=== PATIENT | male | born 1960 | race Two or more races ===

== ENCOUNTER 2021-03-18 17:12 | Emergency (ER) | payer MEDICARE, MEDICAID, SELFPAY ==
--- NOTE | ~2021-03-18 | XR_ITS ---
EXAMINATION: LEFT FOOT AND LEFT ANKLE CLINICAL INFORMATION: Pain. COMPARISON: None TECHNIQUE: 3 views left foot and 2 views left ankle. FINDINGS: LEFT FOOT: The ankle mortise and subtalar joints are normal. There is no visible acute fracture or dislocation seen. The soft tissues are normal. LEFT ANKLE: There is an lucency traversing distal lateral malleolus with mild lateral malleolar soft tissue swelling. The ankle mortise and subtalar joints are normal. There is no visible acute fracture, dislocation or subluxation seen. XR/XR foot LT 2V IMPRESSION: Nondisplaced fracture tip of lateral malleolus with moderate lateral malleolar soft tissue swelling. No additional fractures involving the left ankle or the left foot.
--- NOTE | ~2021-03-18 | XR_ITS ---
EXAMINATION: LEFT FOOT AND LEFT ANKLE CLINICAL INFORMATION: Pain. COMPARISON: None TECHNIQUE: 3 views left foot and 2 views left ankle. FINDINGS: LEFT FOOT: The ankle mortise and subtalar joints are normal. There is no visible acute fracture or dislocation seen. The soft tissues are normal. LEFT ANKLE: There is an lucency traversing distal lateral malleolus with mild lateral malleolar soft tissue swelling. The ankle mortise and subtalar joints are normal. There is no visible acute fracture, dislocation or subluxation seen. XR/XR ankle LT 2V IMPRESSION: Nondisplaced fracture tip of lateral malleolus with moderate lateral malleolar soft tissue swelling. No additional fractures involving the left ankle or the left foot.
[2021-03-18 17:36] VITALS: BP 152/83; PULSE 82; RESP 18; TEMP 36.4; O2SAT 97; BMI 29.5
--- NOTE | 2021-03-18 19:50 | ED_ITS ---
HPI - Fall General Chief Complaint: Fall Stated Complaint: Fall/ left foot pain Time Seen by Provider: 03/18/21 19:20 Source: patient Mode of arrival: ambulatory Limitations: no limitations History of Present Illness HPI Narrative: Patient presents to ED for left ankle pain. Patient states today he tripped and fell over his dog onto the sidewalk. Patient twisted ankle. Patient denies hitting head or loss of consciousness. Patient denies being on any blood thinners. Patient denies any chest pain, shortness of breath, vomiting blood, headache, dizziness, rectal bleeding, or abdominal pain since fall. complaint: fall Related Data Previous Rx's Medication Instructions Recorded naproxen 500 mg tablet 500 mg PO BID PRN #20 tab 03/18/21 Allergies Allergy/AdvReac Type Severity Reaction Status Date / Time No Known Allergies Allergy Unverified 02/23/20 16:59 [No Known Allergies*] Review of Systems Constitutional: Constitutional: Reports as per HPI and Reports no additional constitutional complaints Eyes: Eyes: Reports as per HPI and Reports no additional eye complaints ENT: Reports system reviewed and no additional complaints, except as documented and Reports as per HPI Cardiovascular: Cardiovascular: Reports as per HPI and Reports no additional cardiovascular complaints Respiratory: Respiratory: Reports as per HPI and Reports no additional respiratory complaints Gastrointestinal: Gastrointestinal: Reports as per HPI and Reports no additional gastrointestinal complaints Genitourinary: Genitourinary: Reports no additional male genitourinary complaints and Reports as per HPI Musculoskeletal: Musculoskeletal: Reports no additional musculoskeletal complaints, Reports as per HPI and Reports arthralgias (Left ankle pain) Neurologic: Reports system reviewed and no additional complaints, except as documented and Reports as per HPI Psychiatric: Psychiatric: Reports no additional psychiatric complaints and Reports as per HPI [facility] Past Medical History Medical History (Updated 03/18/21 @ 20:11 by PIPPA Schwartz) Depression HIV (human immunodeficiency virus infection) HTN (hypertension) Hypercholesteremia Lumbar herniated disc Social History Social History Advance Directives: No Advance Directives Information Provided: No Physical Exam Vital Signs: Vital Signs: Last Vital Signs Temp 97.5 F 03/18/21 17:36 Pulse 82 03/18/21 17:36 Resp 18 03/18/21 17:36 BP 152/83 H 03/18/21 17:36 Pulse Ox 97 03/18/21 17:36 Body Mass Index 29.5 Const: General: cooperative, healthy appearing, comfortable, no acute distress, well developed, alert, awake and Physically active Orientation/consciousness: patient oriented x3 HENMT: Head: Yes normal to inspection, Yes No palpable skull fracture present, Yes normocephalic and Yes atraumatic Eyes: General: appearance normal, both eyes and all related structures Neck: Neck: Yes normal visual inspection, Yes full ROM, Yes no lymphadenopathy, Yes no meningeal signs, Yes trachea midline, Yes supple and No tender Chest: Chest palpation & inspection: normal inspection of the chest and normal palpation of entire chest wall Resp: Effort & Inspection: normal respiratory effort and able to speak in complete sentences Auscultation: clear to auscultation bilaterally Cardio: Jugular venous distension: no JVD Heart sounds: S1 normal heart sound present and S2 normal heart sound present GI: Inspection: Yes normal to inspection and No abdominal wall ecchymosis Palpation (GI): Soft to palpation, not firm, nontender, no guarding and not rigid : General: No CVA tenderness and Yes no CVA tenderness Back/Spine/Pelvis: Back: no CVA tenderness, No CVA tenderness and No back t enderness Skin: General skin exam: no rashes or lesions noted and elasticity normal Neuro: General: patient oriented x3, gait normal, no meningeal signs and CN's II-XI intact bilaterally Cranial nerves: Yes CN's II-XII intact bilaterally Extrem: General: Yes normal to inspection and Yes full ROM Upper/lower leg/hip images: 1. Positive for left lateral malleolus tenderness, ecchymosis, and swelling on palpation. Pedal pulses intact. Neuro exam intact. Vascular exam intact. Motor Exam limited due to pain. Achilles tendon intact Psych: Appearance: grossly normal, well kempt and not disheveled Course Course Course Narrative: Patient recent ankle foot x-ray. Reevaluation(s) Reevaluation #1: Ankle x-ray shows tip of lateral malleolus fracture. Motrin or dered. Posterior splint ordered. Time: 19:56 MDM - Fall MDM Narrative Medical decision making narrative: Left lateral malleolus fracture Discharge Plan Discharge Clinical Impression: Ankle fracture, lateral malleolus, closed Patient Disposition: Home, Self-Care Instructions: Ankle Fracture (ED) Additional Instructions: You need to follow-up with orthopedic surgery. Return to ED for worsening pain, worsening bleeding black discoloration, increased swelling, calf pain, redness, chest pain, shortness of breath, pus discharge, foul odor, fever, chills, tingling, numbing, paralysis, or any other concerning symptoms. Prescriptions: New naproxen 500 mg tablet 500 mg PO BID PRN (Reason: pain) Qty: 20 RF: 0 Referrals: Zacarias Dominguez MD [Physician] - 2 days (Ankle fracture) Stand Alone Forms: Work/School Release Interventions: ED Discharge Assessment Last Done: 03/18/21 21:04 Discharge Date/Time: 03/18/21 21:07 Print Language: Ethiopian
[2021-03-18] MEDS: Ibuprofen 800 MG TABLET PO (20:08)
== END 2021-03-18 21:07 | disposition home or self-care (01) ==
PROVIDERS: Emergency Provider Internal Medicine
DX: S82.62XA Displaced fracture of lateral malleolus of left fibula, initial encounter for closed fracture (principal); I10 Essential (primary) hypertension; W01.0XXA Fall on same level from slipping, tripping and stumbling without subsequent striking against object, initial encounter; X50.1XXA Overexertion from prolonged static or awkward postures, initial encounter; Y93.01 Activity, walking, marching and hiking; Y92.480 Sidewalk as the place of occurrence of the external cause; Y99.9 Unspecified external cause status
CPT/HCPCS: 73600; 73620; 99283

== ENCOUNTER 2023-01-21 14:06 | Emergency (ER) | payer MEDICARE, MEDICAID, SELFPAY ==
[2023-01-21 14:22] VITALS: BP 147/102; PULSE 120; RESP 18; TEMP 38; O2SAT 99; BMI 36.9
--- NOTE | 2023-01-21 14:23 | ED_ITS ---
HPI - General Adult General Chief complaint: Fever Stated complaint: Fever Sore Throat Stomach Pain Time Seen by Provider: 01/21/23 15:29 Source: patient Mode of arrival: ambulatory Limitations: no limitations History of Present Illness HPI narrative: Patient is a 62 year old assigned male at with a history of HIV, HTN, and depression presenting to the emergency department today with fever, body aches, and a sore throat. Patient states that over the last day he has had a fever, body aches, and a sore throat. Patient denies any dizziness, lightheadedness, abdominal pain, nausea, vomiting, chills, blurry vision, double vision, loss of vision, chest pain, difficulty breathing, shortness of breath, back pain, night sweats, pain with urination, increased urinary frequency, increased urinary urgency, blood in his urine or stool, syncope or a near syncopal episode, recent trauma or falls, bowel incontinence, bladder incontinence, bowel retention, bladder retention, or any other complaints at this time. Onset (ago): day(s) (1) Severity: mild Severity scale (1-10): 3 Relieving factors: none Exacerbating factors: none Associated symptoms: fever/chills Treatments prior to arrival: none Related Data Previous Rx's Medication Instructions Recorded naproxen 500 mg tablet 500 mg PO BID PRN pain #20 tabs 03/18/21 Allergies Allergy/AdvReac Type Severity Reaction Status Date / Time No Known Allergies Allergy Unverified 02/23/20 16:59 [No Known Allergies*] Review of Systems Constitutional: Constitutional: Reports no additional constitutional complaints, Denies chills, Reports fever(s) and Denies night sweats Eyes: Eyes: Reports no additional eye complaints, Denies blurry vision, Denies change in vision, Denies diplopia, Denies eye discharge, Denies loss of vision and Denies eye pain ENT: Denies dizziness and Reports sore throat Cardiovascular: Cardiovascular: Reports no additional cardiovascular complaints, Denies chest pain, Denies lightheadedness, Denies Loss of Consciousness and Denies dyspnea Respiratory: Respiratory: Reports no additional respiratory complaints, Reports cough and Denies dyspnea Gastrointestinal: Gastrointestinal: Reports no additional gastrointestinal complaints, Denies abdominal pain, Denies melena, Denies hematochezia, Denies change in bowel habits and Denies change in stool character Genitourinary: Genitourinary: Reports no additional male genitourinary complaints, Denies hematuria, Denies oliguria, Denies difficulty urinating, Denies dysuria, Denies urinary frequency, Denies urinary hesitancy, Denies urinary incontinence and Denies urinary urgency Musculoskeletal: Musculoskeletal: Reports no additional musculoskeletal complaints, Denies numbness and Denies tingling Neurologic: Denies dizziness, Denies loss of vision, Denies numbness and Denies tingling Psychiatric: Psychiatric: Reports no additional psychiatric complaints Endocrine: Endocrine: Reports no additional endocrine complaints Hematologic/Lymphatic: Hematologic/Lymphatic: Reports no additional hematologic/lymphatic complaints Allergic/Immunologic: Allergic/Immunologic: Reports no additional allergic/immunologic complaints [facility] Past Medical History Attestation statement: The following information was validated with the patient. Source: old records reviewed and nursing notes reviewed Medical History Depression HIV (human immunodeficiency virus infection) HTN (hypertension) Hypercholesteremia Lumbar herniated disc Social History Social History Advance Directives: No Advance Directives Information Provided: No Physical Exam ED Vital Signs: Vital Signs - 24 hr 01/21/23 14:22 Temperature 100.4 F Pulse Rate 120 H Respiratory Rate 18 Blood Pressure 147/102 H Pulse Oximetry 99 Oxygen Delivery Method Room Air BMI result Body Mass Index 36.9 Const General: cooperative, no acute distress, alert and awake Nutritional Appearance: well nourished Orientation/consciousness: patient oriented x3 Limitations: no limitations [facility] Head: Yes normal to inspection and Yes atraumatic Ears: hearing grossly normal bilaterally and external ears normal General nose exam: Normal external nose present, no nasal discharge noted and no epistaxis Face and sinus: Yes normal facial exam, No abrasion and No laceration Mouth: Normal oral and palatal mucosa present, no drooling and no muffled voice Eyes General: appearance normal, both eyes and all related structures Periorbital: periorbital findings normal Eyelids: Yes eyelids normal Conjunctivae: conjunctivae normal Pupils: Equal, round and reactive pupils present EOM: EOMs intact bilaterally Neck Neck: Yes normal visual inspection, Yes full ROM and Yes no lymphadenopathy Chest Chest palpation & inspection: normal inspection of the chest Resp Effort & Inspection: normal respiratory effort and able to speak in complete sentences Auscultation: clear to auscultation bilaterally Cardio Rate: regular rate Rhythm: regular rhythm GI Inspection: Yes normal to inspection Palpation (GI): Soft to palpation, not firm, nontender and no guarding Neuro General: patient oriented x3 and moves all extremities Cranial nerves: Yes Equal, round and reactive pupils present Cognition (Neuro): normal cognition Motor exam (neuro): 5/5 motor strength present throughout Sensory Exam: Normal double simultaneous stimulation for sensation Coordination: [id number] test normal Extrem General: Yes normal to inspection, Yes full ROM and Yes capillary refill normal Psych Appearance: grossly normal Mental Status: mental status grossly normal Affect: normal affect Attitude: cooperative Thought process: Normal thought process present Thought content: Normal thought content present Insight: Good insight present (Psych) Course Course Course Narrative: RME: 62yo M c/o fever, sore throat, dry cough, SOB and myalgias since yesterday. +sick contacts 100.4 temporally in triage, tachycardic likely from fever Viral testing, rapid strep, CXR, PO Motrin ordered Full HPI, ROS and PE to be performed by primary ED provider. Medications Administered Discontinued Medications Generic Name Dose Route Start Last Admin Trade Name Freq PRN Reason Stop Dose Admin Ibuprofen 600 mg 01/21/23 14:24 01/21/23 15:32 Ibuprofen 600 Mg Tablet PO 01/21/23 14:25 600 mg ONCE ONE Administration Medical Decision Making Medical Decision Making [facility] Narrative: Patient is a 62 year old assigned male at with a history of HTN, HIV, and depression presenting to the emergency department today with a fever, sore throat, and body aches. Patient's physical exam was unremarkable. Patient's COVID-19 swab was positive. I explained my physical exam findings as well as all test results to the patient. I answered all questions asked by the patient. I stressed the importance of the patient taking his medication as prescribed. I stressed the importance of the patient following up with his primary care provider. I stressed the importance of the patient returning to the emergency department immediately if his symptoms were to worsen or if he were to develop any dizziness, shortness of breath, difficulty breathing, chest pain, blurry vision, loss of vision, nausea, vomiting, abdominal pain, fever, chills, back pain, or any other complaints. Patient verbalized agreement and understanding with this treatment plan and discharge. Differential Diagnosis Differential Diagnoses: The differential diagnosis associated with the presentation includes COVID-19 Viral illness Influenza Lab Data MDM Lab Attestation statement: I reviewed the patient's lab results. Patient's COVID-19 swab was positive however, the rest of his labs were grossly normal. Labs: Lab Results 01/21/23 01/21/23 01/21/23 Range/Units 14:41 14:41 14:41 COVID-19 ([facility]) Positive A (Negative) COVID-19 Clin Com See Note Influenza Type A ([facility]) Negative (Negative) Influenza Type B ([facility]) Negative (Negative) Influenza A & B Note See Note S. pyogenes GrpA [facility]HID Negative (Negative) Prescription Management I considered prescription management with: Antiviral (The use of an antiviral medication such as paxlovid was discussed with the patient and through shared decision making, it was determined one would not be prescribed at this time. ) Chronic Conditions Patient?s care impacted by: Hypertension and Other (HIV) Discharge Plan Discharge Clinical Impression: COVID-19 Patient Disposition: Home, Self-Care Instructions: COVID-19 (Coronavirus Disease 2019) (ED) Additional Instructions: Follow up with your primary care provider. Return to the emergency department immediately if your symptoms worsen or if you develop any dizziness, shortness of breath, difficulty breathing, chest pain, blurry vision, loss of vision, nausea, vomiting, abdominal pain, fever, chills, back pain, or any other complaints. Prescriptions: No Action naproxen 500 mg tablet 500 mg PO BID PRN (Reason: pain) Qty: 20 0RF Referrals: Shreyas William MD [Primary Care Provider] - Interventions: ED Discharge Assessment Last Done: 01/21/23 15:39 Discharge Date/Time: 01/21/23 15:40 Print Language: Tamazight
[2023-01-21 15:04] LABS: IDNOW Serial# 08D9AD1C; Strep A Nucleic Acid Negative (Negative)
[2023-01-21 15:27] LABS: COVID-19 Test Positive (Negative); IDNOW Serial# BCCEAD1C; Influenza A Negative (Negative); Influenza B2 Negative (Negative)
[2023-01-21] MEDS: Ibuprofen 600 MG TABLET PO (15:32)
--- NOTE | 2023-01-21 15:35 | PC.NURSE ---
pt medicated per MAR.
== END 2023-01-21 15:40 | disposition home or self-care (01) ==
PROVIDERS: Physician Assistant; Emergency Provider Emergency Medicine; PCP Internal Medicine
DX: U07.1 COVID-19 (principal); R50.9 Fever, unspecified; J02.8 Acute pharyngitis due to other specified organisms; Z79.899 Other long term (current) drug therapy
CPT/HCPCS: 87502; 87635; 87651; 99283

== ENCOUNTER 2024-01-26 16:30 | Emergency (ER) | payer MEDICARE, MEDICAID, SELFPAY ==
[2024-01-26 16:55] VITALS: PULSE 73; RESP 18; TEMP 36.6; O2SAT 98; BMI 31.2
--- NOTE | 2024-01-26 16:59 | ECG_ITS ---
Test Reason : ABDOMINAL PAIN Blood Pressure : / mmHG Vent. Rate : 066 BPM Atrial Rate : 066 BPM P-R Int : 158 ms QRS Dur : 088 ms QT Int : 382 ms P-R-T Axes : 058 041 064 degrees QTc Int : 400 ms Poor data quality, interpretation may be adversely affected Normal sinus rhythm Nonspecific T wave abnormality Abnormal ECG When compared with ECG of 08-DEC-2019 15:51, Vent. rate has decreased BY 44 BPM Nonspecific T wave abnormality now evident in Lateral leads QT has shortened Referred By: Generic ED Physician Electronically Signed By:RIRI MONK
[2024-01-26 17:46] LABS: MANUAL DIFF FLAG NO
[2024-01-26 18:00] LABS: Basophils Percent Auto 0.7 % (0-2); Eosinophils Absolute Auto 0.1 X10*3/uL (0.0-0.4); Eosinophils Percent Auto 2.2 % (0-4); Hematocrit 46.2 % (42.0-52.0); Hemoglobin 15.9 g/dl (14.0-18.0); Imm Gran Abs Auto 0.01 X10*3/uL (0.00-0.03); Imm Gran Pct Auto 0.2 % (0.0-0.4); Lymphocytes Absolute Auto 1.9 X10*3/uL (1.2-4.9); Lymphocytes Percent Auto 31.6 % (20-40); Mean Corpuscular HGB Conc 34.4 g/dl (31.0-36.0); Mean Corpuscular Volume 84.2 fL (80.0-98.0); Mean Platelet Volume 11.2 fL (9.4-12.4); Monocytes Absolute Auto 0.3 X10*3/uL (0.1-1.2); Monocytes Percent Auto 5.5 % (2-11); Neutrophils Absolute Auto 3.6 x10*3/uL (2.0-8.3); Neutrophils Percent Auto 59.8 % (45-73); Platelet Count 187 X10*3/uL (160-400); Red Blood Count 5.49 X10*6/uL (4.60-5.80); Red Cell Distribution Width 12.2 % (11.0-16.0)
[2024-01-26 18:16] LABS: Alanine Aminotransferase 47 U/L (0-40); Albumin Level 4.2 g/dL (3.5-5.0); Alkaline Phosphatase 60 U/L (39-117); Anion Gap 15 (12-20); Aspartate Amino Transferase 28 U/L (5-37); Bilirubin Direct 0.1 mg/dL (0.0-0.5); Bilirubin Total 0.4 mg/dL (0.0-1.0); Blood Urea Nitrogen 21 mg/dL (9-16); Calcium 9.9 mg/dL (8.4-10.2); Carbon Dioxide 24 mmol/L (22-29); Chloride 105 mmol/L (96-108); Creatinine Clr Calc Pharmacy 64.6; Estimated Glomerular Filt Rate 55; Glucose Random 155 mg/dL (60-115); Lipase 58 U/L (8-78); Sodium 140 mmol/L (135-145); Total Protein 7.6 g/dL (6.5-8.0)
[2024-01-26 18:24] LABS: Troponin-I High Sensitivity < 2.7 ng/L (<3.5-35.0)
[2024-01-26 18:45] LABS: Influenza A PCR NEGATIVE (Negative); Influenza B PCR NEGATIVE (Negative); Resp Syncy Virus RNA Qual PCR NEGATIVE (Negative); SARS COV2 PCR INHOUSE NEGATIVE (Negative)
[2024-01-26 22:06] VITALS: BP 182/78; PULSE 72; RESP 17; TEMP 36.6; O2SAT 99
[2024-01-27 00:14] VITALS: BP 167/82; PULSE 73; RESP 17; TEMP 36.7; O2SAT 97
--- NOTE | 2024-01-27 00:38 | PC.NURSE ---
Took report from off-going RN at 2300 hours. Pt is a 63 y/o male here for intermitent abd pain in the epigastric area that has been ongoing X 3 days.
--- NOTE | 2024-01-27 01:43 | PC.NURSE ---
Pt reports being upset and displeased with long wait time in ED. Pt is still waiting to be be seen by a provider. No acute distress noted, but reports increasing pain in epigastric area of abd. Provider aware.
--- NOTE | 2024-01-27 01:54 | PC.NURSE ---
Pt reports he wants to leave, frustrated with long wait time. Provider aware.
[2024-01-27 01:56] VITALS: BP 160/81; PULSE 90; RESP 16; TEMP 36.9; O2SAT 96
--- NOTE | 2024-01-27 02:02 | PC.NURSE ---
Pt left the department without being seen by a provider. Reports he didn't want to wait any longer. Pt advised to contact his PCP in the morning for follow-on guidane and return to the ED if symtpoms persist or worsen. Pt left dept via ambulation with a steady gait.
== END 2024-01-27 02:10 | disposition left against medical advice (07) ==
PROVIDERS: Emergency Provider Emergency Medicine Emergency Medical Services; PCP Internal Medicine
DX: R10.10 Upper abdominal pain, unspecified (principal); R07.89 Other chest pain; Z03.818 Encounter for observation for suspected exposure to other biological agents ruled out; Z79.899 Other long term (current) drug therapy
CPT/HCPCS: 0241U; 36415; 80048; 80076; 83690; 84484; 85025; 93005; 99283; 99284

== ENCOUNTER 2024-06-24 11:52 | Inpatient (IN) | payer OTHER, SELFPAY ==
--- NOTE | ~2024-06-24 | CT_ITS ---
CLINICAL HISTORY: Lower abdominal pain? Diverticulitis CT abdomen and pelvis with contrast Comparison: CT - CT ABDOMEN PELVIS W IV CON - 12/08/2019 Findings: Lung bases clear. Normal gallbladder, bile ducts, liver, pancreas, spleen, and adrenal glands. Normal kidneys, ureters, and urinary bladder. Fluid-filled appendix with mild wall thickening and adjacent fat stranding. Remainder of the bowel and stomach are normal. No free fluid or free air. Bones intact. IMPRESSION: Acute appendicitis. This document has been electronically signed by: Denis Guido MD on 06/24/2024 22:13:50
[2024-06-24 12:26] VITALS: BP 151/83; PULSE 72; RESP 18; TEMP 36.8; O2SAT 97; BMI 31.6
--- NOTE | 2024-06-24 12:29 | ED_ITS ---
HPI - General Adult General Chief complaint: Abdominal Pain Stated complaint: R sided abd pain Time Seen by Provider: 06/24/24 17:56 Source: patient Mode of arrival: ambulatory Limitations: no limitations History of Present Illness ED Provider: HPI narrative: Patient's history of HIV depression hypertension comes here for lower abdominal pain mostly in the right side since yesterday no nausea no vomiting patient did not feel hungry all day today no history of similar pain in the past no urinary complaints no history of kidney stone Related Data Previous Rx's ?Medication ?Instructions ?Recorded naproxen 500 mg tablet 500 mg PO BID PRN pain #20 tabs 03/18/21 Allergies Allergy/AdvReac Type Severity Reaction Status Date / Time No Known Allergies Allergy Verified 06/24/24 12:27 [No Known Allergies*] Review of Systems 2 Review of Systems: Yes all other systems are reviewed and are negative [facility] Past Medical History Medical History Depression Lumbar herniated disc HTN (hypertension) Hypercholesteremia HIV (human immunodeficiency virus infection) Social History Social History Alcohol intake: current Alcohol intake frequency: 0-2 drinks per day Alcohol type: beer Advance Directives: No Advance Directives Information Provided: No Physical Exam ED Vital Signs: Vital Signs - 24 hr 06/24/24 12:26 06/24/24 18:01 06/24/24 20:00 Temperature 98.2 F 97.5 F 97.9 F Pulse Rate 72 69 68 Respiratory Rate 18 18 16 Blood Pressure 151/83 H 182/80 H 160/74 H Pulse Oximetry 97 98 98 Oxygen Delivery Method Room Air Room Air Room Air 06/24/24 22:00 06/24/24 22:59 Temperature Pulse Rate 70 66 Respiratory Rate 20 18 Blood Pressure 160/74 H 172/85 H Pulse Oximetry 100 100 Oxygen Delivery Method Room Air Room Air BMI result Body Mass Index 31.6 Appearance: Alert. Oriented X3. No acute distress. Eyes: No pallor or icterus ENT: Pharynx normal. Oral Mucosa moist Neck: Normal inspection. Neck supple. CVS: Normal heart rate and rhythm. Pulses normal. Respiratory: No respiratory distress. Equal air entry bilateral, no wheezing/rales/rhonchi Abdomen: Soft and deep tenderness right lower quadrant with slight guarding no rebound tenderness Bowel sounds are present, no mass palpable, no CVA tenderness Skin: Skin warm and dry. Normal skin color. Normal skin turgor. Extremities: No lower extremity edema. No calf tenderness Neuro: Oriented X 3. No motor deficit. Course Course Course Narrative: RME, this is a rapid medical exam performed by Joe Guerrero please refer to primary provider for complete H&P- 63-year-old male presents for evaluation of 2 days of right-sided abdominal pain and also radiates to his epigastrium. Plan for labs, urinalysis. We will defer advanced imaging pending labs. Medications Administered Discontinued Medications Generic Name Dose Route Start Last Admin Trade Name Freq PRN Reason Stop Dose Admin Sodium Chloride 1,000 mls @ 999 mls/hr 06/24/24 22:25 06/25/24 01:12 Ns IV 06/24/24 23:25 Infused .Q1H1M ONE Infusion Piperacillin Sod/Tazobactam 100 mls @ 200 mls/hr 06/24/24 22:26 06/25/24 01:13 Sod 4.5 gm/ Sodium Chloride IV 06/24/24 22:55 Infused ONCE ONE Infusion Iohexol 85 ml 06/24/24 21:35 06/24/24 21:36 Iohexol 350 Mg/Ml 100 Ml Infus..Btl IV 06/24/24 21:36 85 ml ONCE ONE Administration Medical Decision Making Medical Decision Making [facility] Narrative: Patient with uncomplicated acute appendicitis case discussed Dr. Alexandra will plan for surgery tonight Differential Diagnosis Differential Diagnoses: The differential diagnosis associated with the presentation includes Appendicitis/kidney stone/UTI/diverticulitis Consult Healthcare Provider Management of the patient was discussed with: Technical Communication Teacher Surgeon Dr. Alexandra Lab Data [facility] Lab Attestation statement: I reviewed the patient's lab results. 06/24/24 12:59 06/24/24 12:59 Labs: Lab Results 06/24/24 06/24/24 Range/Units 12:59 19:35 WBC 6.5 (4.8-10.8) X10*3/uL RBC 4.97 (4.60-5.80) X10*6/uL Hgb 14.6 (14.0-18.0) g/dl Hct 42.2 (42.0-52.0) % MCV 84.9 (80.0-98.0) fL MCH 29.4 (27.0-33.0) pg MCHC 34.6 (31.0-36.0) g/dl RDW 12.7 (11.0-16.0) % Plt Count 180 (160-400) X10*3/uL MPV 10.9 (9.4-12.4) fL Immature Gran % (Auto) 0.3 (0.0-0.4) % Neut % (Auto) 68.8 (45-73) % Lymph % (Auto) 23.1 (20-40) % [place] % (Auto) 5.9 (2-11) % Eos % (Auto) 1.7 (0-4) % Baso % (Auto) 0.2 (0-2) % Lymph # (Auto) 1.5 (1.2-4.9) X10*3/uL [place] # (Auto) 0.4 (0.1-1.2) X10*3/uL Eos # (Auto) 0.1 (0.0-0.4) X10*3/uL Baso # (Auto) 0.0 (0.0-0.2) X10*3/uL Abs Immat Gran (auto) 0.02 (0.00-0.03) X10*3/uL Absolute Neuts (auto) 4.5 (2.0-8.3) x10*3/uL Absolute Nucleated RBC 0.000 (0.0-0.012) X10*3/uL Nucleated RBC % (auto) 0.0 (0.0-0.2) /100WBC Sodium 139 (135-145) mmol/L Potassium 4.1 (3.3-5.1) mmol/L Chloride 106 (96-108) mmol/L Carbon Dioxide 27 (22-29) mmol/L Anion Gap 10 L (12-20) BUN 17 H (9-16) mg/dL Creatinine 1.19 (0.5-1.4) mg/dL Estim Creat Clear Calc 71.0 Estimated GFR > 60 Random Glucose 134 H (60-115) mg/dL Calcium 9.1 D (8.4-10.2) mg/dL Total Bilirubin 0.7 (0.0-1.0) mg/dL AST 21 (5-37) U/L ALT 38 (0-40) U/L Alkaline Phosphatase 68 (39-117) U/L Total Protein 7.5 (6.5-8.0) g/dL Albumin 3.9 (3.5-5.0) g/dL Lipase 46 (8-78) U/L Urine Color Yellow Urine Appearance Clear Urine pH 5.5 (5.0-9.0) Ur Specific [place] 1.020 (1.005-1.025) Urine Protein Negative (Neg-Trace) mg/dL Urine Glucose (UA) Negative (Negative) mg/dL Urine Ketones Negative (Negative) mg/dL Urine Blood Negative (Negative) Urine Nitrite Negative (Negative) Ur Leukocyte Esterase Negative (Negative) Urine RBC 0-2 (0-2) /HPF Urine WBC 0-5 (0-5) /HPF Ur Squamous Epith Cells 0-2 (0-2) /HPF Urine Bacteria None Seen (None Seen) Hyaline Casts 0-2 (0-2) /LPF Independent Interpretation I performed an independent interpretation of an: CT Scan Radiology Impression Discussion of test interpretation with radiology: I have reviewed the radiologist's reading. Radiologist Impression: [place] [id number] [address] Scan Report Signed with Beatriz Patient: Gemma Chandler MR#: [id number] : 1960 Acct:[id number] Age/Sex: 63 / M ADM Date: 06/24/24 Loc: .ED Attending Dr: Ordering Physician: Adolfo Frank MD Date of Service: 06/24/24 Procedure(s): CT abdomen pelvis w IV con Accession Number(s): [id number] cc: SCARLET COURTNEY MD; Adolfo Frank MD~ Report Number: [id number]: Total DLP = 679.00 mGy-cm ADDENDUMThis document has been electronically signed by: Denis Guido MD on 06/24/2024 22:13:50 ADDENDUM: This report was discussed with Dr. Frank on Jun 24, 2024 22:20:00 EST. This document has been electronically signed by: Charissa Norman on 06/24/2024 22:20:27 Addendum Dictated By: Denis Guido MD Addendum Signed By: <Electronically signed by Denis Guido MD in OV> 06/24/242221 Addendum Cosigned By: DD/ TD/TT: 06/24/24 CLINICAL HISTORY: Lower abdominal pain? Diverticulitis CT abdomen and pelvis with contrast Comparison: CT - CT ABDOMEN PELVIS W IV CON - 12/08/2019 Findings: Lung bases clear. Normal gallbladder, bile ducts, liver, pancreas, spleen, and adrenal glands. Normal kidneys, ureters, and urinary bladder. Fluid-filled appendix with mild wall thickening and adjacent fat stranding. Remainder of the bowel and stomach are normal. No free fluid or free air. Bones intact. IMPRESSION: Acute appendicitis. This document has been electronically signed by: Denis Guido MD on 06/24/2024 22:13:50 Discharge Plan Discharge Clinical Impression: Acute appendicitis Patient Disposition: Admitted As Inpatient Discharge Date/Time: 06/25/24 01:14
--- NOTE | 2024-06-24 12:30 | ECG_ITS ---
Test Reason : PAIN Blood Pressure : */* mmHG Vent. Rate : 67 BPM Atrial Rate : 67 BPM P-R Int : 162 ms QRS Dur : 82 ms QT Int : 380 ms P-R-T Axes : 60 37 62 degrees QTcB Int : 401 ms Normal sinus rhythm Normal ECG When compared with ECG of 26-Jan-2024 17:30, No significant change was found Referred By: Rivera Guerrero Electronically Signed By: NARENDRA CRAWFORD MD
[2024-06-24 13:03] LABS: MANUAL DIFF FLAG NO
[2024-06-24 13:05] LABS: Basophils Percent Auto 0.2 % (0-2); Eosinophils Absolute Auto 0.1 X10*3/uL (0.0-0.4); Eosinophils Percent Auto 1.7 % (0-4); Hematocrit 42.2 % (42.0-52.0); Hemoglobin 14.6 g/dl (14.0-18.0); Imm Gran Abs Auto 0.02 X10*3/uL (0.00-0.03); Imm Gran Pct Auto 0.3 % (0.0-0.4); Lymphocytes Absolute Auto 1.5 X10*3/uL (1.2-4.9); Lymphocytes Percent Auto 23.1 % (20-40); Mean Corpuscular HGB Conc 34.6 g/dl (31.0-36.0); Mean Corpuscular Hemoglobin 29.4 pg (27.0-33.0); Mean Corpuscular Volume 84.9 fL (80.0-98.0); Mean Platelet Volume 10.9 fL (9.4-12.4); Monocytes Absolute Auto 0.4 X10*3/uL (0.1-1.2); Monocytes Percent Auto 5.9 % (2-11); Neutrophils Absolute Auto 4.5 x10*3/uL (2.0-8.3); Neutrophils Percent Auto 68.8 % (45-73); Platelet Count 180 X10*3/uL (160-400); Red Blood Count 4.97 X10*6/uL (4.60-5.80); Red Cell Distribution Width 12.7 % (11.0-16.0); White Blood Count 6.5 X10*3/uL (4.8-10.8)
[2024-06-24 13:19] LABS: Alanine Aminotransferase 38 U/L (0-40); Albumin Level 3.9 g/dL (3.5-5.0); Alkaline Phosphatase 68 U/L (39-117); Anion Gap 10 (12-20); Aspartate Amino Transferase 21 U/L (5-37); Bilirubin Total 0.7 mg/dL (0.0-1.0); Blood Urea Nitrogen 17 mg/dL (9-16); Calcium 9.1 mg/dL (8.4-10.2); Carbon Dioxide 27 mmol/L (22-29); Chloride 106 mmol/L (96-108); Estimated Glomerular Filt Rate > 60; Glucose Random 134 mg/dL (60-115); Lipase 46 U/L (8-78); Potassium 4.1 mmol/L (3.3-5.1); Sodium 139 mmol/L (135-145); Total Protein 7.5 g/dL (6.5-8.0)
[2024-06-24 18:01] VITALS: BP 182/80; PULSE 69; RESP 18; TEMP 36.4; O2SAT 98
[2024-06-24 19:43] LABS: Appearance Urine Clear; Color Urine Yellow; Glucose Urine UA Negative (Negative); Leukocyte Esterase Urine Negative (Negative); Nitrite Urine Negative (Negative); PH 5.5 (5.0-9.0); Urine Blood Negative (Negative); Urine Ketones Negative (Negative); Urine Protein Negative (Neg-Trace)
[2024-06-24 19:48] LABS: Bacteria Urine None Seen (None Seen); Hyaline Casts Urine 0-2 /LPF (0-2); RBC Urine 0-2 /HPF (0-2); Squamous Epithelial Cell Urine 0-2 /HPF (0-2); WBC Urine 0-5 /HPF (0-5)
[2024-06-24 20:00] VITALS: BP 160/74; PULSE 68; RESP 16; TEMP 36.6; O2SAT 98
[2024-06-24] MEDS: iohexoL 350 MG/ML 100 ML INFUS..BTL 85 ML IV (21:36)
[2024-06-24 22:00] VITALS: BP 160/74; PULSE 70; RESP 20; O2SAT 100
--- NOTE | 2024-06-24 22:17 | PC.NURSE ---
resting on stretcher, awaiting dispo. no distress or nausea.
[2024-06-24] MEDS: 0.9 % Sodium Chloride 1,000 ML 999 ML IV (22:55)
[2024-06-24] MEDS: Piperacillin Sodium/Tazobactam 4.5 GM in 0.9 % Sodium Chloride 100 ML IV (22:55)
[2024-06-24 22:59] VITALS: BP 172/85; PULSE 66; RESP 18; O2SAT 100
--- NOTE | 2024-06-24 23:26 | P.CONAN_ITS ---
HPI - Anesthesia Eval Consult details Narrative: Acute appendicitis PMFSH Active Problems Active Problems: All Active Problems Lumbar herniated disc (Acute) Hypercholesteremia (Acute) HTN (hypertension) (Acute) HIV (human immunodeficiency virus infection) (Acute) Depression (Acute) COVID-19 (Acute) Past Medical History Medical History Depression Lumbar herniated disc HTN (hypertension) Hypercholesteremia HIV (human immunodeficiency virus infection) Family History Family history of problems with anesthesia: No Surgical History History of Problems with Anesthesia: No Social History Social History Alcohol intake: current Alcohol intake frequency: 0-2 drinks per day Alcohol type: beer Advance Directives: No Advance Directives Information Provided: No Meds Allergies Allergy/AdvReac Type Severity Reaction Status Date / Time No Known Allergies Allergy Verified 06/24/24 12:27 [No Known Allergies*] Exam Height,Weight and Vital Signs: Height 5 ft 9 in Weight 97 kg Last Vital Signs Temp 97.9 F 06/24/24 20:00 Pulse 66 06/24/24 22:59 Resp 18 06/24/24 22:59 BP 172/85 H 06/24/24 22:59 Pulse Ox 100 06/24/24 22:59 O2 Del Method Room Air 06/24/24 22:59 Pertinent Lab Results Pertinent Lab Results: Laboratory Tests 06/24/24 06/24/24 12:59 19:35 WBC 6.5 RBC 4.97 Hgb 14.6 Hct 42.2 MCV 84.9 MCH 29.4 MCHC 34.6 RDW 12.7 Plt Count 180 MPV 10.9 Immature Gran % (Auto) 0.3 Neut % (Auto) 68.8 Lymph % (Auto) 23.1 [place] % (Auto) 5.9 Eos % (Auto) 1.7 Baso % (Auto) 0.2 Lymph # (Auto) 1.5 [place] # (Auto) 0.4 Eos # (Auto) 0.1 Baso # (Auto) 0.0 Abs Immat Gran (auto) 0.02 Absolute Neuts (auto) 4.5 Absolute Nucleated RBC 0.000 Nucleated RBC % (auto) 0.0 Sodium 139 Potassium 4.1 Chloride 106 Carbon Dioxide 27 Anion Gap 10 L BUN 17 H Creatinine 1.19 Estim Creat Clear Calc 71.0 Estimated GFR > 60 Random Glucose 134 H Calcium 9.1 D Total Bilirubin 0.7 AST 21 ALT 38 Alkaline Phosphatase 68 Total Protein 7.5 Albumin 3.9 Lipase 46 Urine Color Yellow Urine Appearance Clear Urine pH 5.5 Ur Specific [place] 1.020 Urine Protein Negative Urine Glucose (UA) Negative Urine Ketones Negative Urine Blood Negative Urine Nitrite Negative Ur Leukocyte Esterase Negative Urine RBC 0-2 Urine WBC 0-5 Ur Squamous Epith Cells 0-2 Urine Bacteria None Seen Hyaline Casts 0-2 Airway Mallampati Class: II TM Dist: >3cm Neck ROM: Full Loose/Missing/Broken Teeth: No Heart: RRR Lungs: CTA Assessment and Plan Assessment Anesthesia Assessment: Anesthesia Plan Discussed and Chart Reviewed Final Anesthetic Review Family History of Problems with Anesthesia: No History of Problems with Anesthesia: No NPO: Yes ASA Class: II and Emergency Final Preanesthetic Review: No Changes in Pt Med Stat, Meds/Allgs Chart Reviewed , Consent Obtained/Reviewed and Anes Risks/Benef Reviewed Patient Risk: Intermediate Procedure Risk: Intermediate Anesthetic Plan Anesthetic Plan: GA Disposition: Standard PACU
--- NOTE | 2024-06-24 23:26 | PC.NURSE ---
transported to OR with RN and OR staff. pt remains stable and compliant/cooperative with care plan.
--- NOTE | 2024-06-24 23:30 | P.HPGS_ITS ---
History of Present Illness History of Present Illness Date of Service: 06/24/24 Chief complaint: R sided abd pain Narrative: Gemma Chandler is a 63 year old male who presents here with a proximally 2 day history of progressively worsening initially epigastric discomfort relocated to the right lower quadrant. Because of progression of symptoms he presents to the emergency department where workup demonstrated on CT scan findings consistent with appendicitis. Patient has never had such symptoms before. He otherwise tolerating a diet. He has regular bowel habits. No other GI issues. Patient has denies any unusual diet, no sick contacts, no diarrhea or loose stool. No recent foreign travel. No new meds. Past medical history noteworthy for HIV, hypertension, and depression. No prior abdominal surgery. [facility] Past Medical History Medical History Depression Lumbar herniated disc HTN (hypertension) Hypercholesteremia HIV (human immunodeficiency virus infection) Social History Social History Alcohol intake: current Alcohol intake frequency: 0-2 drinks per day Alcohol type: beer Advance Directives: No Advance Directives Information Provided: No Meds Allergies Allergy/AdvReac Type Severity Reaction Status Date / Time No Known Allergies Allergy Verified 06/24/24 12:27 [No Known Allergies*] Active Medications: Current Medications Droperidol (Droperidol 5 Mg/2 Ml Vial) 0.625 mg IVPUSH ONCE PRN PRN Reason: intractable nausea Stop: 06/25/24 05:28 Fentanyl (Fentanyl Citrate/Pf 100 Mcg/2 Ml Vial) 50 mcg IVPUSH Q5M PRN PRN Reason: Pain, Severe (Pain Scale 7-10) Stop: 06/25/24 05:27 Hydromorphone HCl (Hydromorphone Hcl 0.5 Mg/0.5 Ml Syringe) 0.5 mg IVPUSH Q5M PRN PRN Reason: Pain, Moderate to Severe (Pain Scale 4-10) Stop: 06/25/24 05:28 Ketorolac Tromethamine (Ketorolac Tromethamine 30 Mg/Ml Vial) 30 mg IVPUSH ONCE PRN PRN Reason: Pain, Severe (Pain Scale 7-10) Stop: 06/25/24 05:28 Naloxone HCl (Naloxone Hcl 0.4 Mg/Ml Vial) 0.04 mg IVPUSH Q5M PRN PRN Reason: Excessive sedation or RR < 8 Physical Exam Vital Signs: Vital Signs: Last Vital Signs Temp 97.9 F 06/24/24 20:00 Pulse 66 06/24/24 22:59 Resp 18 06/24/24 22:59 BP 172/85 H 06/24/24 22:59 Pulse Ox 100 06/24/24 22:59 O2 Del Method Room Air 06/24/24 22:59 BMI result Body Mass Index 31.6 Chest: Other: Chest breath sounds bilaterally, HS 1 in 2 GI: Other: Abdomen corpulent, soft. Marked right lower quadrant localized rebound tenderness. Results Results Labs: Short CBC 06/24/24 Range/Units 12:59 WBC 6.5 (4.8-10.8) X10*3/uL Hgb 14.6 (14.0-18.0) g/dl Hct 42.2 (42.0-52.0) % Plt Count 180 (160-400) X10*3/uL BMP 06/24/24 12:59 Sodium 139 Potassium 4.1 Chloride 106 Carbon Dioxide 27 BUN 17 H Creatinine 1.19 Calcium 9.1 D Liver Function 06/24/24 Range/Units 12:59 Total Bilirubin 0.7 (0.0-1.0) mg/dL AST 21 (5-37) U/L ALT 38 (0-40) U/L Alkaline Phosphatase 68 (39-117) U/L Albumin 3.9 (3.5-5.0) g/dL Urine 06/24/24 Range/Units 19:35 Urine Color Yellow Urine Appearance Clear Urine pH 5.5 (5.0-9.0) Ur Specific [place] 1.020 (1.005-1.025) Urine Protein Negative (Neg-Trace) mg/dL Urine Glucose (UA) Negative (Negative) mg/dL Assessment and Plan (1) Acute appendicitis: Status: Acute Plan History, clinical findings, CT scan all consistent with acute appendicitis. Risks, benefits, alternatives laparoscopic possible open appendectomy were reviewed with the patient and included but not limited to bleeding, infection, numbness, pain, scarring, bowel or bladder injury or leak and the patient wishes to proceed. All questions answered. Arrangements were made for add on or case for this evening. Quality Stroke Does the patient have a stroke diagnosis?: No VTE Prior VTE?: Yes VTE Risk Level:: Surgical - low VTE Device Contraindication: N/A - Device Ordered VTE Drug Contraindication: Treatment Not Indicated Procedures Date of Service Date of Service: 06/24/24
--- NOTE | 2024-06-24 23:51 | W.PM.OPN ---
Operative Note Operative Note Date of Service: 06/24/24 Narrative: Preoperative diagnosis: [] Acute appendicitis, incarcerated umbilical hernia Postop diagnosis: [] Acute phlegmonous appendicitis, incarcerated umbilical hernia with omental contents Procedure [] laparoscopic appendectomy, primary repair of incarcerated umbilical hernia Surgeon: [] Ibrahima Optometrist/Practice Owner: [] Type of Anesthesia: [] General Indication for surgery: [] Phlegmonous appendix but no gross evidence of perforation. Roughly 2 cm incarcerated umbilical hernia with omental contents. This was used as a laparoscopic camera port site Findings: [] Patient brought to the operating room, placed on operative table supine position, after an adequate level of general anesthesia was induced, the patient's abdomen which was moderately corpulent was prepped and draped in usual sterile fashion. Using a supraumbilical curvilinear incision, this carried down through skin, subcutaneous tissue, where hernia sac was identified, dissected off the posterior aspect of the umbilicus, dissected down the fascia, and opened. Omental contents were reduced. Redundant sac was amputated. Barney technique was then used to insufflate abdominal cavity to 15 mm of CO2. Lower midline and suprapubic ports were placed under direct laparoscopic view, and the patient placed in Trendelenburg position, and tilted to the left. Findings were as noted above. The phlegmonous appendix was grasped and brought onto the field. It is mesentery was sequentially taken down using double firing of ligature device. Appendix was then transected at the cecal base using FABIANA stapler. Specimen was placed in an Endo-Catch bag, a retrieved through the umbilical port. Abdominal cavity was copiously irrigated, and secured hemostasis. All ports removed under direct laparoscopic view. Wounds were closed in the following manner; the umbilical hernia site/umbilical port had its fascia closed primarily using interrupted 0 Vicryl sutures. Skin wounds were closed using subcuticular 4-0 Vicryl sutures followed by Steri-Strips and sterile dressings. Wounds were infiltrated 0.5% Marcaine at completion. Sponge, needle, and instrument counts reported correct. Patient tolerated the procedure well and emerged from anesthesia stable condition. EBL minimal
[2024-06-25] VITALS (8 sets, daily range): BP systolic 142–156; BP diastolic 69–98; PULSE 70–113; RESP 16–18; TEMP 36.1–36.6; O2SAT 93–99; BMI 30.8
[2024-06-25] MEDS: 0.9 % Sodium Chloride Flush 3 ML SYRINGE IVFLUSH (01:20)
[2024-06-25] MEDS: Lactated Ringers 1,000 ML 100 ML IVCONT ×2 (01:20→11:05)
[2024-06-25] MEDS: Piperacillin Sodium/Tazobactam 3.375 GM in 0.9 % Sodium Chloride 50 ML IV ×2 (05:05→11:29)
[2024-06-25] MEDS: LORazepam 0.5 MG TABLET PO (05:53)
[2024-06-25] MEDS: HYDROcodone Bit/Acetam 5/325 TABLET 1 TAB PO (07:51)
--- NOTE | 2024-06-25 09:00 | MHC.CM.PN ---
CM MET WITH PT AND AT BEDSIDE PT LIVES AT HOME AND IS INDEPENDENT WITH CARE HE HAS A CANE FOR DME HE DID NOT COMPLETE A HCP TODAY, BUT DID ACCEPT THE INFO AND DOCUMENT PCP: SCARLET COURTNEY IMM DELIVERED DCP: HOME NO SERVICES TO TRANSPORT
--- NOTE | 2024-06-25 10:10 | HO.POSTANES ---
Post Anesthesia Evaluation Post Anesthesia Evaluation Date of Service: 06/25/24 Vital Signs: Vital Signs Temp Pulse Resp BP Pulse Ox O2 Del Method O2 Flow Rate 06/25/24 08:00 97.9 F 100 16 147/73 H 95 Room Air 06/25/24 01:19 96.9 F 70 17 156/75 H 93 Room Air 06/25/24 01:05 97 F 87 16 146/83 H 95 Room Air 06/25/24 01:00 79 16 142/78 H 96 Nasal Cannula 1 06/25/24 00:55 83 16 144/75 H 93 Room Air 06/25/24 00:50 85 16 151/73 H 95 Room Air 06/25/24 00:48 97.1 F 89 17 148/69 H 99 Room Air 06/24/24 22:59 66 18 172/85 H 100 Room Air Anesthesia: General Endotracheal-GETA Mental Status: Awake Pain Control: Satisfactory Nausea/Vomiting: None Hydration: Adequate Anesthesia-Related Issues: No Anes. Related Issues
--- NOTE | 2024-06-25 10:18 | PHA.MEDREC ---
Addendum entered by Manisha Queen RPh 06/25/24 11:13: DIONNE REVIEWED MED REC...MELY WAS LAST GIVEN IN MAY BUT UNKNOWN EXACT DATE Original Note: Pharmacy Consult ? Medication Reconciliation Pharmacy has completed the medication reconciliation. Spoke with patient and family to confirm medications. He only had morning medications yesterday. He did not take Biktarvy yesterday.
--- NOTE | 2024-06-25 13:53 | PM.PNGS ---
Subjective Subjective Date of Service: 06/25/24 Interval history: Uneventful evening. Patient was evaluated with family present. He is tolerating his diet. He has been up out of bed ambulating. Minimal incisional discomfort. Physical Exam Vital Signs: Vital Signs: Last Vital Signs Temp 97.9 F 06/25/24 08:00 Pulse 100 06/25/24 08:00 Resp 16 06/25/24 08:00 BP 147/73 H 06/25/24 08:00 Pulse Ox 95 06/25/24 08:00 O2 Del Method Room Air 06/25/24 08:00 O2 Flow Rate 1 06/25/24 01:00 BMI result Body Mass Index 30.8 GI: Other: Abdomen is soft. All dressings clean dry and intact Objective Data Active Medications Acetaminophen (Acetaminophen 325 Mg Tablet) 650 mg PO Q6H PRN PRN Reason: Pain, Mild 1-3,fever,headache Hydrocodone Bitart/Acetaminophen (Hydrocodone Bit/Acetam 5/325 Tablet) 1 tab PO Q4H PRN PRN Reason: Pain, Moderate(Pain Scale 4-6) Last Admin: 06/25/24 07:51 Dose: 1 tab Documented By: SHEILA Calcium Carbonate (Calcium Carbonate 750 Mg Tab.Chew) 750 mg PO Q4H PRN PRN Reason: Heartburn Hydromorphone HCl (Hydromorphone Hcl 1 Mg/Ml Syringe) 0.5 mg IVPUSH Q4H PRN; Protocol PRN Reason: Pain, Severe (Pain Scale 7-10) Lactated Ringer's (Lr) 1,000 mls @ 100 mls/hr IVCONT .Q10H HUY Last Admin: 06/25/24 11:05 Dose: 100 mls/hr Documented By: SEHILA Piperacillin Sod/Tazobactam (Sod 3.375 gm/ Sodium Chloride) 50 mls @ 100 mls/hr IV Q6H HUY Last Infusion: 06/25/24 12:20 Dose: Infused Documented By: SHEILA Lorazepam (Lorazepam 0.5 Mg Tablet) 0.5 mg PO Q8H PRN PRN Reason: Anxiety Last Admin: 06/25/24 05:53 Dose: 0.5 mg Documented By: LISET Magnesium Hydroxide (Milk Of Magnesia 30 Ml Oral.Susp) 30 ml PO DAILY PRN PRN Reason: Constipation Melatonin (Melatonin 3 Mg Tablet) 6 mg PO BEDTIME PRN PRN Reason: Insomnia Naloxone HCl (Naloxone Hcl 0.4 Mg/Ml Vial) 0.04 mg IVPUSH Q5M PRN PRN Reason: Excessive sedation or RR < 8 Ondansetron HCl (Ondansetron Hcl 4 Mg/2 Ml Vial) 4 mg IVPUSH Q8H PRN PRN Reason: Nausea and Vomiting Sodium Chloride (0.9 % Sodium Chloride Flush 3 Ml Syringe) 3 ml IVFLUSH QSHIFT [facility] Last Admin: 06/25/24 07:07 Dose: Not Given Documented By: SHEILA Non-Admin Reason: IV Running Labs 06/24/24 12:59 06/24/24 12:59 Labs: Laboratory Results - last 24 hr 06/24/24 19:35 Urine Color Yellow Urine Appearance Clear Urine pH 5.5 Ur Specific [place] 1.020 Urine Protein Negative Urine Glucose (UA) Negative Urine Ketones Negative Urine Blood Negative Urine Nitrite Negative Ur Leukocyte Esterase Negative Urine RBC 0-2 Urine WBC 0-5 Ur Squamous Epith Cells 0-2 Urine Bacteria None Seen Hyaline Casts 0-2 Procedures Date of Service Date of Service: 06/25/24 Progress Note: A&P Assessment and plan (1) Acute appendicitis: Status: Acute Plan Current plan is discharge patient home with follow-up with me. Discharge instructions were reviewed. All questions answered. Time Spent With Patient Time: Total time managing care of this patient today ____ minutes. Quality Stroke Does the patient have a stroke diagnosis?: No VTE Prior VTE?: Yes VTE Risk Level:: Surgical - low VTE Device Contraindication: N/A - Device Ordered VTE Drug Contraindication: Treatment Not Indicated
--- NOTE | 2024-06-25 14:12 | MHC.CM.PN ---
PT WILL DC HOME TODAY WITH NO SERVICES VIA PRIVATE TRANSPORT
--- NOTE | 2024-06-25 16:09 | P.DS_ITS ---
DS: Providers Provider Date of Service: 06/25/24 Date of admission: 06/24/24 23:32 Date of discharge: 06/25/24 Primary care physician: Shreyas William MD Attending physician on admission: Aguila Alexandra Attending physician on discharge: Aguila Alexandra DS: Diagnosis Discharge Diagnosis (1) Acute appendicitis: Status: Acute DS: Summary Hospital Course Hospital Course: HPI AT ADMISSION: Gemma Chandler is a 63 year old male who presents here with a proximally 2 day history of progressively worsening initially epigastric discomfort relocated to the right lower quadrant. Because of progression of sy mptoms he presents to the emergency department where workup demonstrated on CT scan findings consistent with appendicitis. Patient has never had such symptoms before. He otherwise tolerating a diet. He has regular bowel habits. No other GI issues. Patient has denies any unusual diet, no sick contacts, no diarrhea or loose stool. No recent foreign travel. No new meds. Past medical history noteworthy for HIV, hypertension, and depression. No prior abdominal surgery. HOSPITAL COURSE: The patient was admitted to the surgical service for further treatment of the acute appendicitis. He elected to proceed with laparoscopic appendectomy. He was added onto the OR schedule for that day. On 06/24/24, a laparoscopic appendectomy, primary repair of incarcerated umbilical hernia was performed by Dr. Alexandra without complication. The patient tolerated the procedure well. He had an uncomplicated recovery course. On POD #1, he felt well and was tolerating a solid diet without nausea or vomiting, had good pain control and was ambulating without difficulty. He was hemodynamically stable. His abdomen was benign with appropriate post op tenderness and clean and intact dressings. He felt ready for discharge. He was discharged to home on 06/25/24 in stable condition. He is to follow up in the office in 1 week. Status at Discharge Functional status at discharge: independent ambulation Overall status at discharge: patient is progressing back to baseline Time Attestation Discharge Coordination Time (in mins): 30 Quality: Safe Use of Opioids Does Pt have an Active Cancer Diagnosis on the Problem List?: No Quality: Stroke Does the patient have a stroke diagnosis?: No Physical Exam Vital Signs: Vital Signs: Last Vital Signs Temp 97.9 F 06/25/24 14:20 Pulse 113 H 06/25/24 14:20 Resp 18 06/25/24 14:20 BP 150/98 H 06/25/24 14:20 Pulse Ox 98 06/25/24 14:20 O2 Del Method Room Air 06/25/24 14:20 O2 Flow Rate 1 06/25/24 01:00 BMI result Body Mass Index 30.8 Const: General: comfortable, no acute distress and alert GI: Inspection: No distended and Yes incision (dressings c/d/i) Palpation (GI): Soft to palpation DS: Data Data Completed and Pending Pending studies at discharge: Pending at discharge 06/25/24 00:28 Surgical [PTH] Routine Discharge Plan Discharge Anticipated Discharge Date/Time: 06/25/24 13:54 Patient Disposition: Home, Self-Care Discharge Diagnosis: Acute appendicitis Referrals: Shreyas William MD [Primary Care Provider] - 1 Week Aguila Alexandra MD [Physician] - 1 Week Discharge Medications: New hydrocodone-acetaminophen 5-325 mg tablet 1 tab PO Q4-6H PRN (Reason: pain) Qty: 30 0RF Rx Instructions: Partial Fill upon patient request. Continued atorvastatin 20 mg tablet 20 mg PO DAILY@0900 metoprolol ta-hydrochlorothiaz 100-25 mg tablet 1 tab PO DAILY@0900 lisinopril 5 mg tablet 5 mg PO DAILY@0900 lorazepam 1 mg tablet 1 mg PO BID PRN (Reason: Anxiety) naproxen 500 mg tablet 500 mg PO BID PRN (Reason: Pain) cholecalciferol (vitamin D3) 50 mcg (2,000 unit) capsule 50 mcg PO DAILY@0900 Stelara 90 mg/mL syringe 90 mg subcut Q12W Patient Comments: Last had in May 2024 potassium chloride 20 mEq tablet extended release 20 meq PO BID Biktarvy 50-200-25 mg tablet 1 tab PO BEDTIME Discharge Orders: Discharge Order (Routine); Ordered 06/25/24 Ordered By: Aguila Alexandra Diet: Advance to usual diet Activity on Discharge: No heavy lifting Stand Alone Forms: Patient Portal Discharge page Print Language: Kinyarwanda Activity Restrictions/Additional Instructions: Ice to wound 20 minutes several times today and tomorrow. May shower tomorrow. Remove outside dressing only. Leave Steri-Strips intact. No stren uous activities Care Plan Goals: Healed from surgery Health Concerns: No new issues Plan of Treatment: Convalesced Assessment: Status Patient Instructions: Laparoscopic Appendectomy (DC) Discharge Date/Time: 06/25/24 14:24
== END 2024-06-25 14:24 | disposition home or self-care (01) | DRG 398 ==
LOC: HO.ED 23:28 → HO.EDOVER 23:47 → HO.S3 23:49
PROVIDERS: Physician Assistant; Admitting Provider Surgery; Emergency Provider Internal Medicine; PCP Internal Medicine; Visit Provider Surgery
PROC: 0DTJ4ZZ Resection of Appendix, Percutaneous Endoscopic Approach (ICD-10-PCS; CPT 44970; principal; 2024-06-24 23:45)
DX: K35.33 Acute appendicitis with perforation, localized peritonitis, and gangrene, with abscess (principal); K42.0 Umbilical hernia with obstruction, without gangrene; Z21 Asymptomatic human immunodeficiency virus [HIV] infection status; Z79.899 Other long term (current) drug therapy
CPT/HCPCS: 36415; 74177; 80053; 81001; 83690; 85025; 88304; 93005; 99285; J1885; J1920; J2003; J2543; J2704; J2795; J3010; J7120; Q9967

== ENCOUNTER → 2024-06-24 12:30 | Outpatient (BNV) | payer MEDICARE, MEDICAID, SELFPAY | PROVIDERS: PCP Internal Medicine; Visit Provider Internal Medicine Cardiovascular Disease | DX: R10.30 Lower abdominal pain, unspecified (principal) | CPT/HCPCS: 93010 ==

== ENCOUNTER → 2024-06-24 18:01 | Outpatient (BNV) | payer OTHER, SELFPAY | PROVIDERS: Emergency Provider Internal Medicine; PCP Internal Medicine; Visit Provider Surgery | DX: K35.80 Unspecified acute appendicitis (principal) | CPT/HCPCS: 44970; 99024; 99222 ==

== ENCOUNTER → 2024-06-24 18:12 | Outpatient (BNV) | payer OTHER, SELFPAY | PROVIDERS: Emergency Provider Internal Medicine; PCP Internal Medicine; Visit Provider Radiology Diagnostic Radiology | DX: R10.30 Lower abdominal pain, unspecified (principal) | CPT/HCPCS: 74177 ==

== ENCOUNTER 2024-07-04 13:21 | Outpatient (AMB) | payer OTHER, SELFPAY ==
--- NOTE | 2024-07-04 13:26 | A.OFFVIS_ITS ---
Intake Visit Reasons: s/p Suture Removal/appendectomy Intake Note: Patient here s/p laparoscopic appendectomy, primary repair of incarcerated umbilical hernia. Reports incisions healing well. Patient c/o: steri strips fell off. Taking rx pain meds as needed. Head Waiter Required: No Accompanied by: Self / Same As Patient Allergies No Known Allergies [No Known Allergies*] Allergy (Verified 07/04/24 13:30) HPI Comments Details: Presents for follow-up status post appendectomy. He is tolerating a diet. He is having regular bowel habits. He is increasing his activity level. Patient has minimal incisional discomfort. [facility] Medical History (Updated 07/03/24 @ 00:01 by Armen Suárez) Depression Lumbar herniated disc HTN (hypertension) Hypercholesteremia HIV (human immunodeficiency virus infection) Surgical History (Updated 07/05/24 @ 07:22 by Aguila Alexandra MD) Status post laparoscopic appendectomy Social History Household Members: Spouse Housing: Apartment Do you presently have visiting nurse or other home services: No Alcohol intake: current Alcohol intake frequency: 0-2 drinks per day Alcohol type: beer Patient Tobacco Use Status: Never used Tobacco service: No Physical Exam GI Other: Abdomen corpulent, soft, benign. All wounds clean dry and intact healing well Assessment & Plan Assessment & Plan (1) Status post laparoscopic appendectomy: Code(s): Z90.49 - Acquired absence of other specified parts of digestive tract Category: Medical Plan Patient was been given local instructions, avoiding strenuous activities next few weeks time, and will otherwise follow-up p.r.n.. All questions answered. Coding Level of Care Code Global (64296) Diagnoses Status post laparoscopic appendectomy Z90.49
== END 2024-07-04 13:37 | disposition home or self-care (01) ==
PROVIDERS: PCP Internal Medicine; Visit Provider Surgery
DX: Z90.49 Acquired absence of other specified parts of digestive tract (principal)
CPT/HCPCS: 99024

== ENCOUNTER → 2024-07-04 13:21 | Outpatient (BNVA) | payer OTHER, SELFPAY | PROVIDERS: PCP Internal Medicine; Visit Provider Surgery | DX: Z09 Encounter for follow-up examination after completed treatment for conditions other than malignant neoplasm (principal); Z90.49 Acquired absence of other specified parts of digestive tract | CPT/HCPCS: 99212 ==